=== PATIENT | female | born 1955 | race Caucasian/White ===

== ENCOUNTER 2020-06-30 10:37 | Inpatient (IN) | payer OTHER ==
[~2020-06-30] VITALS: Ht 160 cm; Wt 73.3 kg
--- NOTE | 2020-06-30 14:28 | 2DMMODE ---
[facility] [address] [place] [address] 2 D/M-MODE ECHOCARDIOGRAM Name: LEONARDO DAVE Room #: 212-P ADM IN M.R.#: [id number] Admission: 06/30/20 Attend Phys: Arjun Burrows MD Discharge: Date of : 57 Report #: [id number] THIS REPORT FOR: cc: FAM - Family physician unknown FAM - Family physician unknown Milton Ramires MD ~ APPROVED REPORT Study performed: 06/30/2020 13:44:49 EXAM: Comprehensive 2D, Doppler, and color-flow Echocardiogram Patient Location: Bedside Room #: 212 Status: routine BSA: 1.78 HR: 98 bpm Rhythm: NSR Other Information Study Quality: Adequate Indications COPD Dyspnea 2D Dimensions IVC: 14.00 mm Aortic Valve AoV Peak Oj.: 1.52 m/s AO Peak Gr.: 9.21 mmHg LVOT Max P.49 mmHg LVOT Max V: 1.17 m/s Mitral Valve E/A Ratio: 0.7 MV Decel. Time: 340.47 ms MV E Max Oj.: 0.51 m/s MV A Oj.: 0.73 m/s MV PHT: 98.74 ms IVRT: 129.18 ms Pulmonary Valve PV Peak Oj.: 1.43 m/s PV Peak Gr.: 8.21 mmHg [facility] [place] [address] 2 D/M-MODE ECHOCARDIOGRAM Name: LEONARDO DAVE Room #: 212-P [facility] IN M.R.#: [id number] Admission: 06/30/20 Attend Phys: Arjun Burrows MD Discharge: Date of : 57 Report #: [id number] Pulmonary Vein P Vein S: 0.58 m/s P Vein A: 0.39 m/s P Vein D: 0.30 m/s P Vein A Dur.: 96.9 msec P Vein S/D Ratio: 1.93 Left Ventricle The left ventricle is normal size. There is normal LV segmental wall motion. There is normal left ventricular wall thickness. Left ventricular systolic function is normal. The left ventricular ejection fraction is within the normal range. LVEF is 55-60%. Grade I - abnormal relaxation pattern. Right Ventricle The right ventricle is normal size. The right ventricular systolic function is normal. Atria The left atrium size is normal. The right atrium size is normal. Aortic Valve The aortic valve is normal in structure. No aortic regurgitation is present. There is no aortic valvular stenosis. Mitral Valve The mitral valve is normal in structure. There is no mitral valve regurgitation noted. No evidence of mitral valve stenosis. Tricuspid Valve The tricuspid valve is normal in structure. There is no tricuspid valve regurgitation noted. Pulmonic Valve The pulmonary valve is normal in structure. There is no pulmonic valvular regurgitation. Great Vessels The aortic root is normal in size. IVC is normal in size and collapses >50% with inspiration. Pericardium There is no pericardial effusion. <Conclusion> The left ventricle is normal size. [facility] [address] [place] [address] 2 D/M-MODE ECHOCARDIOGRAM Name: LEONARDO DAVE Room #: 212-P ADM IN M.R.#: [id number] Admission: 06/30/20 Attend Phys: Arjun Burrows MD Discharge: Date of : 57 Report #: [id number] LVEF is 55-60%. The aortic valve is normal in structure. The mitral valve is normal in structure. The tricuspid valve is normal in structure. The pulmonary valve is normal in structure. There is no pericardial effusion. <ELECTRONICALLY SIGNED> By: Milton Ramires MD 06/30/20 1428 1428 142 Milton Ramires MD /INF
--- NOTE | 2020-06-30 18:11 | NUR ---
ASSUMED CARE OF PT AT APPROX 1215 FROM [facility] D/T WORSENING PN. SETTLED PT IN ROOM. COMPLETED ADMISSION ASSESSMENTS, HISTORY AND EDUCATION. NG TUBE PUT IN, D/T DISTENDED BELLY, TESTS SHOWED A BURST APPENDIX. IV ABX STARTED. C/O PAIN TREATED WITH TYLENOL WITH PARTIAL RELIEF. WILL CONTINUE TO MONITOR AND FOLLOW POC.
[2020-06-30 19:30] VITALS: BP 119/70
[2020-06-30] MEDS ORDERED: ADVAIR 250-501 EACH INH (20:11)
[2020-06-30] MEDS ORDERED: PROAIR HFA8.5 GM NEB (20:12)
[2020-06-30] MEDS ORDERED: CEFTRIAXONE2 G1 IV (20:14)
[2020-06-30] MEDS ORDERED: LIPITOR10 MG PO (20:14)
[2020-06-30] MEDS ORDERED: DILTIAZEM ER180 M2 PO (20:15)
[2020-06-30] MEDS ORDERED: DRIZALMA SPRINK60 MG PO (20:16)
[2020-06-30] MEDS ORDERED: ENOXAPARIN40 MG/0.1 SUBQ (20:17)
[2020-06-30] MEDS ORDERED: OMEPRAZOLE 20 M20 M1 PO (20:17)
[2020-06-30] MEDS ORDERED: DESYREL150 MG PO (20:18)
[2020-06-30] MEDS ORDERED: KETOROLAC30 MG/1 M5 IV PUSH (20:20)
[2020-06-30] MEDS ORDERED: ZUPLENZ4 MG IV PUSH (20:21)
[2020-06-30 23:52] VITALS: BP 107/62
[2020-07-01 03:12] LABS: HEMATOCRIT 45.4 % (37.0-47.0); HEMOGLOBIN 14.6 gm/dL (12.0-15.0); MCH 28.8 pg (26.0-34.0); MCHC 32.2 g/dL (28.0-37.0); MCV 89.3 fL (80.0-100.0); PLATELET COUNT 406 thou/uL (150-400); RBC 5.08 mil/uL (4.20-5.00); RDW 15.4 % (10.5-14.5); WBC 29.5 thou/uL (4.0-11.0)
[2020-07-01 03:27] LABS: CALCIUM 8.7 mg/dL (8.5-10.1); CREATININE 0.9 mg/dL (0.6-1.0); MAGNESIUM 2.2 mg/dL (1.8-2.4); POTASSIUM 3.7 mmol/L (3.5-5.1)
--- NOTE | 2020-07-01 03:45 | NUR ---
Assumed pt care at 1900. Pt is alert and oriented but very drowsy. No sign of distress noted in pt. NGT in place. Pt is stable. AFIB noted on heart rate, cardizem drip administered. Fall precaution in place. Assessment completed and documented. Scheduled meds administered to pt. No acute events overnight. Continue to monitor. No further needs at this time.
[2020-07-01 04:00] VITALS: BP 115/67
[2020-07-01 04:20] LABS: ABSOLUTE NEUTROPHILS 28.3 thou/uL (1.4-8.2)
--- NOTE | 2020-07-01 05:00 | HC ---
[facility] [place] [address] [address] [place] [address] CONSULTATION Name: LEONARDO DAVE Room #: 212-P ADM IN M.R.#: [id number] Admission: 06/30/20 Attend Phys: Arjun Burrows MD Discharge: Date of : 57 Report #: [id number] THIS REPORT FOR: cc: FAM - Family physician unknown FAM - Family physician unknown Brandin Lagos MD ~ DATE OF SERVICE: 06/30/2020 INFECTIOUS DISEASE CONSULTATION ATTENDING PHYSICIAN: Dr. Burrows. REASON FOR EVALUATION: Community-acquired pneumonia with respiratory failure. Imaging suggested multiple small cavitary lesions. HISTORY OF PRESENT ILLNESS: This is a 64-year-old woman who has been ill for perhaps up to 10 days. She noted onset of nausea with emesis, developed some loose stools, abdominal pain, subsequently developed fevers and dyspnea. She is noted to have COPD. Since that time, her clinical status has worsened in spite of being in the hospital. She had a sputum culture collected with growth of group G strep as well as Proteus. She was treated with initial therapy of ceftriaxone and azithromycin. Based on susceptibilities, this was continued. She was referred for higher level of care and possible bronchoscopy. She is scheduled to undergo CT imaging. At this point, she is quite lethargic. She denies significant pain. She has had poor p.o. intake, does admit to chills, although is not aware of fevers. ALLERGIES: None. MEDICATIONS: Currently include sliding scale insulin, acetaminophen, ondansetron as needed, had been transferred on albuterol, Cardizem CD 120, duloxetine 60, omeprazole, Symbicort, trazodone, ceftriaxone, atorvastatin. PAST MEDICAL HISTORY: Includes known COPD, history of diabetes mellitus, depression, hyperlipidemia, hypertension. SOCIAL HISTORY: Continues to smoke cigarettes. FAMILY HISTORY: Noncontributory. REVIEW OF SYSTEMS: Otherwise unremarkable with the exception of the above. PHYSICAL EXAMINATION: GENERAL: She appears chronically ill, undernourished older than her stated age. She is somnolent, although she does arouse and seems to respond appropriately. [facility] [address] [place] [address] CONSULTATION Name: LEONARDO DAVE Room #: 212-P [facility] IN ..#: [id number] Admission: 06/30/20 Attend Phys: Arjun Burrows MD Discharge: Date of : 57 Report #: [id number] She appears chronically ill. VITAL SIGNS: Pending. HEENT: Nasal cannula in place. Normocephalic. Extraocular muscles intact. NECK: Supple. LUNGS: Scattered coarse breath sounds. HEART: Distant, regular. I do not appreciate a murmur. ABDOMEN: Mildly distended, soft. Again, mild tenderness as well. GENITOURINARY AND RECTAL: Deferred. LABORATORY DATA: In progress, CT pending. ASSESSMENT AND PLAN: Pneumonitis, complicated by respiratory failure, has isolation of group G strep as well as Proteus. I think the former is likely more significant pathogen. We will continue ceftriaxone 2 grams daily. A workup was begun. We will adjust our approach is more available information. It is notable that she has a negative QuantiFERON. She had negative COVID testing as well. Continue oxygen support. We will add incentive spirometry. She is able. <ELECTRONICALLY SIGNED> By: Brandin Lagos MD 07/01/20 0500 1329 01 Brandin Lagos MD /nt
[2020-07-01 07:35] VITALS: BP 118/61
[2020-07-01 11:13] VITALS: BP 119/64
[2020-07-01 16:30] VITALS: BP 110/60
[2020-07-01 17:57] LABS: URINE BLOOD NEGATIVE (Negative); URINE CLARITY CLEAR; URINE COLOR YELLOW; URINE GLUCOSE-RANDOM* NEGATIVE (Negative); URINE KETONES 1+ (Negative); URINE LEUKOCYTES-REFLEX NEGATIVE (Negative); URINE NITRITE-REFLEX NEGATIVE (Negative); URINE PROTEIN (DIPSTICK) 1+ (Negative); URINE SPECIFIC GRAVITY 1.025 (1.005-1.035)
[2020-07-01 18:02] LABS: ICTOTEST (BILI CONFIRMATORY) Negative (Negative); URINE BILIRUBIN NEGATIVE (Negative)
[2020-07-01 19:30] VITALS: BP 128/64
--- NOTE | 2020-07-01 19:53 | NUR ---
ASSUMMED PT CARE AT APPROXIMATELY 0700. PT A&O X4. ASSESSMENT CHARTED. FALL PRECAUTIONS IN PLACE. PT DENIES HAVING CHEST PAIN. PT DENIES HAVING SOB. PT STATED SHE HAD ABDOMINAL PAIN. PT RECEIVED ANALGESICS. PT STATED ANALGESICS HELPED RELIEVE PAIN. VITAL SIGNS STABLE. BLOOD SUGARS STABLE. PER DR. CASTANEDA, PT CAN HAVE ICE CHIPS. PT STATED SHE HAD NAUSEA. PT RECEIVED ANTIEMETIC. NAUSEA RESOLVED. EDUCATED PT AND PT FAMILY ABOUT POC. PT AND PT'S FAMILY STATED UNDERSTANDING AND DENIED HAVING FURTHER QUESTIONS. PT COMFORTABLE. PT DENIES HAVING FURTHER CONCERNS. NG TUBE C/D/I.
[2020-07-02 03:30] VITALS: BP 118/64
--- NOTE | 2020-07-02 03:39 | NUR ---
Assumed pt care at 1900. Pt is alert and oriented. NGT in place. Pt is stable, laying in bed. Fall precaution in place. Pain med administered upon request. Assessment completed and documented. Scheduled meds administered to pt. No acute events overnight. Continue to monitor. No further needs at this time.
[2020-07-02 05:06] LABS: CALCIUM 8.6 mg/dL (8.5-10.1); CREATININE 0.7 mg/dL (0.6-1.0); POTASSIUM 3.7 mmol/L (3.5-5.1)
[2020-07-02 05:07] LABS: HEMATOCRIT 44.9 % (37.0-47.0); HEMOGLOBIN 14.5 gm/dL (12.0-15.0); MCH 28.8 pg (26.0-34.0); MCHC 32.3 g/dL (28.0-37.0); MCV 89.3 fL (80.0-100.0); RBC 5.02 mil/uL (4.20-5.00); RDW 15.4 % (10.5-14.5); WBC 29.1 thou/uL (4.0-11.0)
[2020-07-02 08:48] VITALS: BP 139/85
--- NOTE | 2020-07-02 10:01 | HC ---
[facility] [place] [address] [address] CONSULTATION Name: LEONARDO DAVE Room #: 212-P ADM IN M.R.#: [id number] Admission: 06/30/20 Attend Phys: Arjun Burrows MD Discharge: Date of : 57 Report #: [id number] THIS REPORT FOR: cc: FAM - Family physician unknown FAM - Family physician unknown Davi Mcclelland MD ~ DATE OF SERVICE: 07/01/2020 CARDIOLOGY CONSULTATION INDICATION: Atrial fibrillation. HISTORY OF PRESENT ILLNESS: This is a 64-year-old female with a history of COPD, chronic tobacco use, hypertension, hypercholesterolemia, depression, who was a direct transfer from [facility] for worsening respiratory status. CT scan revealed cavitary lesions and positive blood cultures. She also reported some abdominal pain, may have an acute appendicitis with a phlegmon. When she arrived to [facility], she was noted to be in atrial fibrillation with a rapid rate. She denies any prior history of AFib or CO. PAST MEDICAL HISTORY: COPD, hypertension, tobacco use, depression, obesity. ALLERGIES: None. MEDICATIONS: At home include Advair, atorvastatin 10, ceftriaxone, diltiazem 120, omeprazole. SOCIAL HISTORY: One pack per day. FAMILY HISTORY: Negative for premature CAD. REVIEW OF SYSTEMS: A full 10-point review of systems performed. Only the pertinent positives and negatives are described in the HPI. PHYSICAL EXAMINATION: VITAL SIGNS: Blood pressure is 118/60, heart rate is 100 beats per minute. GENERAL APPEARANCE: This is an elderly appearing female in no acute distress. HEENT: Normocephalic, atraumatic. Oral mucosa moist. NG tube in place. NECK: Supple. LUNGS: Diminished breath sounds at the bases. CARDIAC: S1, S2 positive. ABDOMEN: Soft, nontender. EXTREMITIES: Positive edema, no cyanosis. [facility] [address] [place] [address] CONSULTATION Name: LEONARDO DAVE Room #: 212-P [facility] IN [facility]#: [id number] Admission: 06/30/20 Attend Phys: Arjun Burrows MD Discharge: Date of : 57 Report #: [id number] ECG reveals atrial fibrillation. ASSESSMENT AND PLAN: 1. Respiratory failure/chronic obstructive pulmonary disease/chronic tobacco use. Continue with antibiotics, check cultures. Pulmonary evaluation. 2. Atrial fibrillation, will need anticoagulation therapy. Currently n.p.o. 3. Abdominal pain/appendicitis/phlegmon, as per General Surgery. NG tube in place. 4. Hypertension, stable blood pressure. <ELECTRONICALLY SIGNED> By: Davi Mcclelland MD 07/02/20 1001 1046 1335 Davi Mcclelland MD /nt
[2020-07-02 11:39] VITALS: BP 130/78
[2020-07-02 16:20] VITALS: BP 130/78
[2020-07-02 16:30] VITALS: BP 126/68
--- NOTE | 2020-07-02 17:21 | NUR ---
ASSUMED CARE OF PT AT SHIFT CHANGE. ASSESSMENTS CHARTED. MEDS GIVEN PER SEP. PT A&OX4, C/O PAIN TREATED WITH IV MEDS WITH PARTIAL RELIEF, ALLOWING PT TO SLEEP MOST OF AFTERNOON. C/O NAUSAEA TREATED WITH ZOFRAN. PT ALLOWED ICE CHIPS AND ONE SMALL SODA. NG TUBE OUTPUT IS MAINLY CLEAR LIQUID. PT CONTINUES TO BE NPO. WILL CONTINUE TO MONITOR AND FOLLOW POC.
[2020-07-02 19:31] VITALS: BP 141/85
--- NOTE | 2020-07-02 21:39 | EKG ---
[address] [place] [address] ELECTROCARDIOGRAM REPORT Name: LEONARDO DAVE Room #: 212-P ADM IN M.R.#: [id number] Admission: 06/30/20 Attend Phys: Arjun Burrows MD Discharge: Date of : 57 Report #: [id number] [facility] Test Date: 2020-06-30 Test Time: 18:31:23 Pat Name: LEONARDO DAVE Department: Room: 212 P Gender: F Hospital Tray Service Worker: randall : 1955 Requested By: Arjun Burrows Order Number: [id number] MD: Milton Ramires Measurements Intervals [place] Rate: 132 P: ID: QRS: 79 QRSD: 95 T: -53 QT: 367 QTc: 544 Interpretive Statements Atrial fibrillation rapid ventricular response Poor R wave progression Nonspecific ST-T wave change Baseline wander in lead(s) I,III,aVL,V4 No previous ECG available for comparison Electronically Signed On 07-02-2020 21:39:50 WINDOW TREATMENT INSTALLER by Milton Ramires [email or web address] <ELECTRONICALLY SIGNED> By: Milton Ramires MD 07/02/202138 30 30 Milton Ramires MD /EPI
--- NOTE | 2020-07-02 21:39 | EKG ---
[address] [address] ELECTROCARDIOGRAM REPORT Name: LEONARDO DAVE Room #: 212-P ADM IN M.R.#: [id number] Admission: 06/30/20 Attend Phys: Arjun Burrows MD Discharge: Date of : 57 Report #: [id number] [facility] Test Date: 2020-06-30 Test Time: 18:34:38 Pat Name: LEONARDO DAVE Department: Room: 212 P Gender: F Fan Blade Truer: randall : 1955 Requested By: Arjun Burrows Order Number: [id number] MD: Milton Ramires Measurements Intervals [place] Rate: 115 P: MA: QRS: 75 QRSD: 121 T: 16 QT: 375 QTc: 519 Interpretive Statements Atrial fibrillation rapid ventricular Nonspecific intraventricular conduction delay Poor R wave progression Borderline repolarization abnormality Compared to ECG 06/30/2020 18:31:23 Intraventricular conduction delay now present Electronically Signed On 07-02-2020 21:39:17 PATIENT SERVICES TECHNICIAN by Milton Ramires [email or web address] <ELECTRONICALLY SIGNED> By: Milton Ramires MD 07/02/202138 33 33 Milton Ramires MD /EPI
[2020-07-03 03:50] LABS: HEMATOCRIT 46.7 % (37.0-47.0); HEMOGLOBIN 14.9 gm/dL (12.0-15.0); MCH 28.8 pg (26.0-34.0); MCHC 31.9 g/dL (28.0-37.0); MCV 90.5 fL (80.0-100.0); RBC 5.16 mil/uL (4.20-5.00); RDW 15.7 % (10.5-14.5); WBC 25.8 thou/uL (4.0-11.0)
--- NOTE | 2020-07-03 03:50 | NUR ---
Assumed pt care at 1900. Pt is alert and oriented. No sign of distress noted in pt . Pt verbalizes pain. Pain med administered upon request. NGT to suction. Fall precaution in place. Scheduled meds administered to pt. Assessment completed and documented. No acute events overnight. Continue to monitor, no further needs at this time.
[2020-07-03 04:00] LABS: CREATININE 0.8 mg/dL (0.6-1.0); POTASSIUM 3.6 mmol/L (3.5-5.1)
[2020-07-03 04:44] VITALS: BP 152/81
[2020-07-03 07:15] VITALS: BP 135/77
[2020-07-03 15:20] VITALS: BP 125/58
--- NOTE | 2020-07-03 16:14 | NUR ---
ASSUMED CARE OF PT AT SHIFT CHANGE. ASSESSMENTS CHARTED. MEDS GIVEN PER SEP. PT A&OX4, C/O PAIN TREATED WITH IV MEDS WITH PARTIAL RELIEF. NG TUBE DC'D IN THE AM. PT ALLOWED ICE CHIPS, WILL BEGIN CLEAR LIQUIDS TOMORROW. WILL CONTINUE TO MONITOR AND FOLLOW POC.
[2020-07-03 16:20] VITALS: BP 125/58
[2020-07-03 19:18] VITALS: BP 143/80
[2020-07-03 23:36] VITALS: BP 109/54
--- NOTE | 2020-07-04 04:09 | NUR ---
CARE ASSUMED 1900. PT ALERT AND ORIENTED. VITALS STABLE. NO CHEST DISCOMFORT. PT C/O NAUSEA, ZOFRAN X 1. ALSO REPORTS ABDOMINAL PAIN, FENTANYL PRN GIVEN. PT HAD DISTENDED STOMACH , FIRM AND DIMINISHED BOWEL SOUNDS. PT MAINTAINED NPO EXCEPT ICE CHIPS. WILL CONTINUE TO MONITOR AND FOLLOW POC.
[2020-07-04 04:27] VITALS: BP 133/74
[2020-07-04 04:51] LABS: HEMATOCRIT 45.1 % (37.0-47.0); HEMOGLOBIN 14.4 gm/dL (12.0-15.0); MCH 28.6 pg (26.0-34.0); MCHC 31.9 g/dL (28.0-37.0); MCV 89.8 fL (80.0-100.0); RBC 5.02 mil/uL (4.20-5.00); RDW 15.6 % (10.5-14.5); WBC 26.5 thou/uL (4.0-11.0)
[2020-07-04 05:14] LABS: CALCIUM 8.3 mg/dL (8.5-10.1); CREATININE 0.6 mg/dL (0.6-1.0); POTASSIUM 3.7 mmol/L (3.5-5.1)
[2020-07-04 07:51] VITALS: BP 123/62
[2020-07-04 11:02] VITALS: BP 102/58
[2020-07-04 15:02] VITALS: BP 116/65
--- NOTE | 2020-07-04 17:19 | NUR ---
met with patient who transferred to [facility] from [facility]. Patient resides in independent home. She does not drive. Reports family lives in area and assists with transportation. Patient reports independnet with adls and self care. Patient admitted with pna and appendicitis. Patient whispers answers. She has a PCP for dc. Casemgt following.
[2020-07-04 18:15] VITALS: BP 116/65
--- NOTE | 2020-07-04 18:34 | NUR ---
ASSUMED CARE OF PT AT SHIFT CHANGE. ASSESSMENTS CHARTED. MEDS GIVEN PER SEP. PT A&OX4, RATING PAIN 6-9/10 ALL SHIFT. IV PAIN MEDS GIVEN WITH ONLY PARTIAL RELIEF. PT REFUSED NG TUBE, SAID SHE WANTED THE SURGERY. WILL PASS REPORT TO NOC NURSE. WILL CONTINUE TO MONITOR AND FOLLOW POC.
[2020-07-04 19:00] VITALS: BP 112/69
[2020-07-05 04:00] VITALS: BP 153/77
--- NOTE | 2020-07-05 04:26 | NUR ---
ASSUMED PT CARE AT 1900. VSS. PT A&0X4. PT REFUSED NG TUBE AT SHIFT CHANGE. PT THEN REQUESTED NG TUBE AROUND 2200 BECAUSE SHE WAS GETTING INCREASINGLY UNCOMFORTABLE. NGT PLACED IN LEFT NARE, MARKET AT 60CM; ABOUT 800ML OUT THIS SHIFT. NEW IV PLACED IN LEFT HAND LEFT AC IV GOT PULLED OUT ACCIDENTALLY BY PT. PT IS STABLE NOW, PAIN MANAGED WITH PRN FENTANYL. WILL CONTINUE TO CLOSELY MONITOR PER POC
[2020-07-05 05:06] LABS: HEMATOCRIT 44.8 % (37.0-47.0); HEMOGLOBIN 14.2 gm/dL (12.0-15.0); MCH 28.6 pg (26.0-34.0); MCHC 31.8 g/dL (28.0-37.0); RBC 4.97 mil/uL (4.20-5.00); RDW 15.5 % (10.5-14.5); WBC 36.9 thou/uL (4.0-11.0)
[2020-07-05 05:17] LABS: CALCIUM 8.3 mg/dL (8.5-10.1); CREATININE 0.6 mg/dL (0.6-1.0); POTASSIUM 3.3 mmol/L (3.5-5.1)
[2020-07-05 08:22] VITALS: BP 122/61
--- NOTE | 2020-07-05 10:24 | NUR ---
PT IS AOX4, VSS, PAIN CONTROLLED WITH IV PAIN ANALGESIC. NG TUBE IS PATENT, DENIES NAUSEA AT THIS TIME. 2L PER NC, INCONTINENET OF B&B. ENCOURAGE PT TO CALL FOR ASSISTANCE. IV PATENT IN R AND L HAND, FLUIDS ARE FLOWING. FALL PRECAUTIONS IN PLACE. WILL CONTINUE TO MONITOR.
[2020-07-05 11:35] VITALS: BP 123/69
--- NOTE | 2020-07-05 13:49 | NUR ---
Nutrition: Consider change IVFs to Clinimix PPN due to NPO status x 5 days.
--- NOTE | 2020-07-05 14:37 | NUR ---
Sp with RN and dtr Marjorie [phone] wanted to have call from casemgt and phys. Dr Lilia ramírez with dtr. sp with dtr verified patient independent with adls water vessel captain. Dtr wants to be designated visitor, updated RN. Patient with SBO she currently has NG tube.
[2020-07-05 15:21] VITALS: BP 114/78
[2020-07-05 19:30] VITALS: BP 106/74
[2020-07-05 23:52] VITALS: BP 115/75
[2020-07-06] VITALS (58 sets, daily range): BP systolic 45–138; BP diastolic 14–91
--- NOTE | 2020-07-06 04:25 | NUR ---
WHISPERS WHEN TALKING.PATIENT KEEPS TAKING OFF O2.ON O2 3L NC.NPO.NGT TO LIS WITH BROWNISH OUTPUT.ZOFRAN GIVEN.MONITOR SHOWS SINUS ARRYTHMIA.POC CONTINUED.
[2020-07-06 05:16] LABS: HEMATOCRIT 44.6 % (37.0-47.0); HEMOGLOBIN 14.4 gm/dL (12.0-15.0); MCH 29.1 pg (26.0-34.0); MCHC 32.3 g/dL (28.0-37.0); MCV 90.1 fL (80.0-100.0); RBC 4.95 mil/uL (4.20-5.00); RDW 15.5 % (10.5-14.5); WBC 32.7 thou/uL (4.0-11.0)
[2020-07-06 05:23] LABS: CALCIUM 8.4 mg/dL (8.5-10.1); CREATININE 0.7 mg/dL (0.6-1.0); MAGNESIUM 2.2 mg/dL (1.8-2.4); POTASSIUM 3.2 mmol/L (3.5-5.1)
--- NOTE | 2020-07-06 13:02 | NUR ---
Case discussed with the care team. No weekend dc anticipated. Possible surgical intervention today per the attending. Will follow.
--- NOTE | 2020-07-06 16:21 | NUR ---
AAOX4. CALM, COOPERATIVE. SPEAKS IN WHISPERS. NG TO LIS PATENT. SMALL BOWEL SERIES ORDERED; NG HAS BEEN CLAMPED MOST OF THE DAY, CAUSING HER TO VOMIT A LARGE AMOUNT; RADIOLOGY INFORMED OF SAME. ZOFRAN AND ATIVAN ADMIN ORDERED. SERIES IS TO LAST UNTIL 2229 TONIGHT. SR/ST PER TELE. FALL PRECAUTIONS IN PLACE.
[2020-07-06 18:44] LABS: BE(vivo) -10.4 mmol/L (-2 to +3); HCO3 17.9 mmol/L (22.0-26.0); PCO2 48.3 mmHg (35.0-45.0); PO2 184.3 mmHg (80.0-100.0); pH 7.187 (7.360-7.450); sO2 98.9 % (92.0-98.0)
[2020-07-06 18:51] LABS: HEMATOCRIT 46.6 % (37.0-47.0); MCHC 30.1 g/dL (28.0-37.0); MCV 93.1 fL (80.0-100.0); RBC 5.01 mil/uL (4.20-5.00); RDW 16.2 % (10.5-14.5); WBC 32.8 thou/uL (4.0-11.0)
[2020-07-06 19:04] LABS: BUN 35 mg/dL (7-18); CALCIUM 8.6 mg/dL (8.5-10.1); CHLORIDE 100 mmol/L (98-107); CO2 21 mmol/L (21-32); CREATININE 1.4 mg/dL (0.6-1.0); GLUCOSE 110 mg/dL (74-106)
[2020-07-06 19:09] LABS: FIBRINOGEN 414.7 mg/dL (210-360)
[2020-07-06 19:13] LABS: ANION GAP 26 mmol/L (7-16); MAGNESIUM 3.3 mg/dL (1.8-2.4); SODIUM 147 mmol/L (136-145); TROPONIN-I <0.06 ng/mL (<0.06)
[2020-07-06 19:14] LABS: POTASSIUM 5.3 mmol/L (3.5-5.1)
[2020-07-06 19:17] LABS: D-DIMER 35.2 ug/mLFEU (0.19-0.50)
--- NOTE | 2020-07-06 19:30 | NUR ---
ROUNDED ON PATIENT AT 1745 AND NOTED PATIENT WAS NOT BREATHING AND HAD NOT PULSE - CODE BLUE INITIATED - COMPRESSIONS STARTED- SEE CODE BLUE RECORD - PT TRANSFERED WITH BELONGINGS TO THE ICU VIA BED PT INTUBATED AND HAD PULSE AT TIME OF TRANSFER.
--- NOTE | 2020-07-06 20:51 | NUR ---
1745- CODE BLUE CALLED. BLEACH RANGE OPERATOR WENT TO ROOM. FOUND MULTIPLE STAFF PERFORMING CODE BLUE ON PATIENT WITH CHEST COMPRESSIONS. SEE CODE BLUE SHEET. PATIENT WAS THEN TRANSFERRED TO ICU WITH ASSISTANCE OF MULTIPLE STAFF AT 1810. DR. SIMON WAS ON PHONE WITH SCOREKEEPER, DR. ALEGRIA WAS ON CCU, DR. MATHUR CAME IN AND PLACED EMERGENT CENTRAL LINE PATIENT HAD ONE PERIPHERAL LINE THAT WAS WORKING, AND DR. MAYA WAS CALLED. ORDERS RECEIVED FROM PHYSICIANS AT TIME OF CONCERN/NEED. PATIENT UNRESPONSIVE. DR. SIMON TALKED WITH PATIENTS DAUGHTER WHO IS COMING UP TO ICU.
--- NOTE | 2020-07-06 21:49 | NUR ---
ASSUMED CARE OF PATIENT AT 184, LINE BEING PLACED BY DR MATHUR, PT STARTED ON HYPOTHERMIA PROTOCOL AT 1929, NO GAG/COUGH/CORNEAL/PUPILLARY REFLEXES NOTED AT TIME OF ASSESSMENT AT 2029. 2 AMP BICARB GIVEN AT [address] SIMON AT BEDSIDE, TO MTN AT 2109 ONCE PT BP STABLE. NOTE THAT PT AT TIME OF CALL IS MAXED ON LEVOPHED, NEOSYNEPHERINE, VASO AND EPINEPHERINE
--- NOTE | 2020-07-06 21:57 | NUR ---
PER DR. MAYA REWARMING BEGAN AT 2139 DUE TO UNSTABLE BLOOD PRESSURE AND HR DROPPING. PT DAUGHTER AT BEDSIDE AT 2154, HAS ALREADY SPOKEN TO DR SIMON
--- NOTE | 2020-07-06 22:56 | NUR ---
DAUGHTER SHARON STATES THAT SHE DISCUSSED WITH DR SIMON THE POTENTIAL OUT COMES OF PT SITUATION AND THAT SHE HAD SPOKEN WITH HER MOTHER REGARDING END OF LIFE DECISIONS AND "SHE WOULD NOT HAVE WANTED THIS. SHE DID NOT WANT TO BE KEPT ALIVE BY MACHINES." OFFERED TO CALL [facility] OR [facility] IF DAUGHTER HAD ANY OTHER QUESTIONS. DAUGHTER DENIES THIS NEED. ANSWERED ALL QUESTIONS WITHIN THIS RN'S SCOPE OF PRACTICE. DAUGHTER STATES SHE WOULD LIKE TO GO COMFORT CARE AND COMPASSIONATELY EXTUBATE. CALL TO [facility] TO OBTAIN ORDERS AND GIVE UPDATE. DISCUSSED LABS AND CURRENT PRESSOR RATES AND [facility]. ORDERS RECIEVED
--- NOTE | 2020-07-06 23:30 | NUR ---
TOD BY 2 RN AT 2306 VFIB/ASYSTOLE ON MONITOR, NO HEART TONES FOR 1 MIN. ALL DRS NOTIFIED
--- NOTE | 2020-07-07 08:52 | EKG ---
[address] [address] ELECTROCARDIOGRAM REPORT Name: LEONARDO DAVE Room #: 248-P [facility] IN M.R.#: [id number] Admission: 06/30/20 Attend Phys: Arjun Burrows MD Discharge: 07/06/20 Date of : 57 Report #: [id number] [facility] Test Date: 2020-07-06 Test Time: 18:19:46 Pat Name: LEONARDO DAVE Department: Room: 248 Gender: F Fisher Quahog: Kedar KIM : 1955 Requested By: Arjun Burrows Order Number: [id number] MD: Javi Lange Measurements Intervals [place] Rate: 104 P: 0 TX: 117 QRS: 81 QRSD: 100 T: 41 QT: 358 QTc: 471 Interpretive Statements Sinus tachycardia Left atrial enlargement Baseline wander in lead(s) V2 Compared to ECG 06/30/2020 18:34:38 Atrial fibrillation no longer present Intraventricular conduction delay no longer present Poor R-wave progression no longer present Electronically Signed On 07-07-2020 8:51:46 GLASS FURNACE TENDER by Javi Lange [email or web address] <ELECTRONICALLY SIGNED> By: Javi Lange MD, FACC 07/07/20 0851 181 18 Javi Lange MD, [facility] /EPI
== END 2020-07-06 23:06 | DRG 871 ==
LOC: 2N 10:37 → ICU 07-06 18:14
PROVIDERS: Internal Medicine; Nurse Practitioner; ADMIT Hospitalist; ATTEND Hospitalist
PROC: 0D9670Z Drainage of Stomach with Drainage Device, Via Natural or Artificial Opening (ICD-10-PCS; principal; 2020-07-01)
PROC: 5A1935Z Respiratory Ventilation, Less than 24 Consecutive Hours (ICD-10-PCS; 2020-07-06)
PROC: 02HV33Z Insertion of Infusion Device into Superior Vena Cava, Percutaneous Approach (ICD-10-PCS; 2020-07-06)
PROC: 0BH17EZ Insertion of Endotracheal Airway into Trachea, Via Natural or Artificial Opening (ICD-10-PCS; 2020-07-06)
DX: A41.9 Sepsis, unspecified organism (principal); K35.33 Acute appendicitis with perforation, localized peritonitis, and gangrene, with abscess; J96.01 Acute respiratory failure with hypoxia; J15.4 Pneumonia due to other streptococci; J15.6 Pneumonia due to other Gram-negative bacteria; I48.20 Chronic atrial fibrillation, unspecified; E46 Unspecified protein-calorie malnutrition; J44.0 Chronic obstructive pulmonary disease with (acute) lower respiratory infection; K56.609 Unspecified intestinal obstruction, unspecified as to partial versus complete obstruction; G93.1 Anoxic brain damage, not elsewhere classified; E11.9 Type 2 diabetes mellitus without complications; F32.9 Major depressive disorder, single episode, unspecified; I10 Essential (primary) hypertension; E78.5 Hyperlipidemia, unspecified; F17.210 Nicotine dependence, cigarettes, uncomplicated; E66.9 Obesity, unspecified; G89.29 Other chronic pain; Z20.828 Contact with and (suspected) exposure to other viral communicable diseases; M54.9 Dorsalgia, unspecified; E87.6 Hypokalemia; I46.9 Cardiac arrest, cause unspecified; R65.20 Severe sepsis without septic shock; Z51.5 Encounter for palliative care; Z68.28 Body mass index [BMI] 28.0-28.9, adult; Z98.42 Cataract extraction status, left eye; Z98.41 Cataract extraction status, right eye; Z71.6 Tobacco abuse counseling; Z28.21 Immunization not carried out because of patient refusal; Z79.899 Other long term (current) drug therapy
CPT/HCPCS: 10078; 10081; 10797